=== PATIENT | female | born 1960 | race American Indian/Alaskan Native ===

== ENCOUNTER 2021-03-14 12:32 | Emergency (ER) | payer OTHER ==
[2021-03-14] MEDS ORDERED: Sodium Chloride 0.9% 10 ML Syringe FLUSH PRN (12:59)
[2021-03-14] MEDS ORDERED: Morphine 4 MG/ML Syringe IVPUSH PRN (12:59)
[2021-03-14] MEDS ORDERED: Nitroglycerin 0.4 MG Tab.SL SL PRN (12:59)
[2021-03-14] MEDS ORDERED: Aspirin 81 MG Tab.Chew PO ONE (12:59)
--- NOTE | 2021-03-14 13:03 | EDM.PDOC ---
ED HPI GENERAL MEDICAL PROBLEM - General Chief Complaint: Chest Pain Stated Complaint: HANDS AND LEGS NUMB, CHEST PAIN Time Seen by Provider: 03/14/21 12:56 Source of Information: Reports: Patient, Family, RN Notes Reviewed History Limitations: Reports: No Limitations - History of Present Illness INITIAL COMMENTS - FREE TEXT/NARRATIVE: 60-year-old female presents to the emergency department day complaint of chest pain, states that chest pain started about 4 hours prior she has not had pain like this before does feel nauseated did have one episode of emesis feels diaphoretic and short of breath. She has never had any heart issues but she has a strong family history does use tobacco products - Related Data Allergies Allergy/AdvReac Type Severity Reaction Status Date / Time No Known Allergies Allergy Verified 03/14/21 12:59 Home Meds: Home Meds Budesonide/Formoterol Fumarate [Symbicort 160-4.5 Mcg Inhaler] 6 gm IH BID 03/14/21 [History] LORazepam [Ativan] 0.5 mg PO TID PRN #10 tablet 03/14/21 [Rx] Metoprolol Succinate [Toprol XL] 25 mg PO DAILY 03/14/21 [History] Past Medical History Cardiovascular History: Reports: Hypertension Social & Family History - Tobacco Use Tobacco Use Status *Q: Current Every Day Tobacco User ED ROS GENERAL - Review of Systems Review Of Systems: See Below Constitutional: Reports: Diaphoresis HEENT: Reports: No Symptoms Respiratory: Reports: Shortness of Breath Cardiovascular: Reports: Chest Pain GI/Abdominal: Reports: Nausea, Vomiting ED EXAM, GENERAL - Physical Exam Exam: See Below Exam Limited By: No Limitations General Appearance: Alert, Mild Distress Respiratory/Chest: No Respiratory Distress, Lungs Clear, Normal Breath Sounds, No Accessory Muscle Use, Chest Non-Tender Cardiovascular: Regular Rate, Rhythm, No Murmur GI/Abdominal: Soft, Non-Tender #1 Interpretation EKG Date: 03/14/21 Time: 13:03 Rhythm: NSR Balsam: Normal P-Wave: Present QRS: Normal ST-T: Normal QT: Normal Comparison: NA - No Prior EKG Course - Vital Signs Last Recorded V/S: Last Vital Signs Temp 98 F 03/14/21 12:56 Pulse 59 L 03/14/21 15:19 Resp 14 03/14/21 15:19 BP 137/60 03/14/21 15:19 Pulse Ox 94 L 03/14/21 15:19 - Orders/Labs/Meds Orders: Active Orders 24 hr Category Date Time Status Cardiac Monitoring [RC] .As Directed Care 03/14/21 12:59 Active EKG Documentation Completion [RC] ASDIRECTED Care 03/14/21 13:00 Active Peripheral IV Care [RC] . DIRECTED Care 03/14/21 13:00 Active Morphine Med 03/14/21 12:59 Active 4 mg IVPUSH Q10M PRN Nitroglycerin [Nitrostat] Med 03/14/21 12:59 Active 0.4 mg SL Q5M PRN Sodium Chloride 0.9% [Saline Flush] Med 03/14/21 12:59 Active 10 ml FLUSH ASDIRECTED PRN Peripheral IV Insertion Adult [OM.PC] Stat Oth 03/14/21 12:59 Ordered Saline Lock Insert [OM.PC] Stat Oth 03/14/21 12:59 Ordered EKG 12 Lead [EK] Stat Ther 03/14/21 13:00 Ordered Medication Orders Morphine Sulfate (Morphine 4 Mg/Ml Syringe) 4 mg IVPUSH Q10M PRN PRN Reason: Chest Pain Stop: 03/15/21 12:59 Nitroglycerin (Nitroglycerin 0.4 Mg Tab.Sl) 0.4 mg SL Q5M PRN PRN Reason: Chest Pain Stop: 03/15/21 12:59 Last Admin: 03/14/21 13:17 Dose: 0.4 mg Documented by: ROD Sodium Chloride (Sodium Chloride 0.9% 10 Ml Syringe) 10 ml FLUSH ASDIRECTED PRN PRN Reason: Keep Vein Open Last Admin: 03/14/21 13:27 Dose: 10 ml Documented by: ROD Labs: Laboratory Tests 03/14/21 03/14/21 03/14/21 Range/Units 13:18 13:18 13:18 WBC 7.4 (4.5-11.0) K/uL RBC 4.30 (3.30-5.50) M/uL Hgb 13.4 (12.0-15.0) g/dL Hct 38.8 (36.0-48.0) % MCV 90 (80-98) fL MCH 31 (27-31) pg MCHC 35 (32-36) % Plt Count 216 (150-400) K/uL Neut % (Auto) 64.6 (36-66) % Lymph % (Auto) 29.1 (24-44) % [place] % (Auto) 5.7 (2-6) % Eos % (Auto) 0.5 L (2-4) % Baso % (Auto) 0.1 (0-1) % Sodium 141 (140-148) mmol/L Potassium 3.9 (3.6-5.2) mmol/L Chloride 102 (100-108) mmol/L Carbon Dioxide 24 (21-32) mmol/L Anion Gap 14.9 H (5.0-14.0) mmol/L BUN 14 (7-18) mg/dL Creatinine 0.8 (0.6-1.0) mg/dL Est Cr Clr Drug Dosing TNP Estimated GFR (MDRD) > 60 (>60) Glucose 123 H (74-106) mg/dL Calcium 9.1 (8.5-10.1) mg/dL Total Bilirubin 0.6 (0.2-1.0) mg/dL AST 25 (15-37) U/L ALT 32 (12-78) U/L Alkaline Phosphatase 74 (46-116) U/L Troponin I < 0.017 (0.000-0.056) ng/mL Total Protein 7.4 (6.4-8.2) g/dL Albumin 3.8 (3.4-5.0) g/dL Globulin 3.6 H (2.3-3.5) g/dL Albumin/Globulin Ratio 1.1 L (1.2-2.2) TSH, Ultra Sensitive 1.290 (0.358-3.740) uIU/mL Meds: Medications Generic Name Dose Route Start Last Admin Trade Name Freq PRN Reason Stop Dose Admin Morphine Sulfate 4 mg 03/14/21 12:59 Morphine 4 Mg/Ml Syringe IVPUSH 03/15/21 12:59 Q10M PRN Chest Pain Nitroglycerin 0.4 mg 03/14/21 12:59 03/14/21 13:17 Nitroglycerin 0.4 Mg Tab.Sl SL 03/15/21 12:59 0.4 mg Q5M PRN Administration Chest Pain Sodium Chloride 10 ml 03/14/21 12:59 03/14/21 13:27 Sodium Chloride 0.9% 10 Ml Syringe FLUSH 10 ml ASDIRECTED PRN Administration Keep Vein Open Discontinued Medications Generic Name Dose Route Start Last Admin Trade Name Bimal PRN Reason Stop Dose Admin Aspirin 324 mg 03/14/21 12:59 03/14/21 13:07 Aspirin 81 Mg Tab.Chew PO 03/14/21 13:00 324 mg ONETIME ONE Administration Lorazepam 0.5 mg 03/14/21 14:07 03/14/21 15:05 Lorazepam 2 Mg/Ml Sdv IVPUSH 03/14/21 14:08 0.5 mg ONETIME ONE Administration Departure - Departure Time of Disposition: 15:30 Disposition: Home, Self-Care 01 Condition: Fair Clinical Impression: Anxiety Prescriptions: LORazepam [Ativan] 0.5 mg PO TID PRN #10 tablet PRN Reason: Anxiety Referrals: PCP,None [Primary Care Provider] - Forms: ED Department Discharge Additional Instructions: [facility], use this whenever you have symptoms of chest pain or shortness of breath, please follow-up with your primary care in the next 3 to 5 days for reevaluation consider some long-term anxiety medications call return to the emergency department worsening of symptoms, Sepsis Event Note (ED) - Focused Exam Vital Signs: Vital Signs Temp Pulse Resp BP BP Pulse Ox 03/14/21 15:19 59 L 14 137/60 94 L 03/14/21 14:11 57 L 18 137/68 96 03/14/21 13:41 61 16 150/76 H 94 L 03/14/21 13:25 68 14 152/81 H 93 L 03/14/21 13:17 163/79 H 03/14/21 12:56 98 F 63 22 H 161/77 H 98 - My Orders Last 24 Hours: My Active Orders 03/14/21 12:59 Cardiac Monitoring [RC] .As Directed Morphine 4 mg IVPUSH Q10M PRN Nitroglycerin [Nitrostat] 0.4 mg SL Q5M PRN Sodium Chloride 0.9% [Saline Flush] 10 ml FLUSH ASDIRECTED PRN Peripheral IV Insertion Adult [OM.PC] Stat Saline Lock Insert [OM.PC] Stat 03/14/21 13:00 EKG Documentation Completion [RC] ASDIRECTED Peripheral IV Care [RC] . DIRECTED EKG 12 Lead [EK] Stat - Assessment/Plan Last 24 Hours: My Active Orders 03/14/21 12:59 Cardiac Monitoring [RC] .As Directed Morphine 4 mg IVPUSH Q10M PRN Nitroglycerin [Nitrostat] 0.4 mg SL Q5M PRN Sodium Chloride 0.9% [Saline Flush] 10 ml FLUSH ASDIRECTED PRN Peripheral IV Insertion Adult [OM.PC] Stat Saline Lock Insert [OM.PC] Stat 03/14/21 13:00 EKG Documentation Completion [RC] ASDIRECTED Peripheral IV Care [RC] . DIRECTED EKG 12 Lead [EK] Stat Plan: Assessment Acuity = acute Site and laterality = anxiety Etiology = generalized anxiety disorder Manifestations = chest pain now resolved Location of injury = Home Lab values = CBC, CMP, troponin, thyroid within normal limits EKG is unremar kable , has a poor inspiratory effort it is portable there is a area that could possibly exclude an infiltrate however she has no symptoms of such. Plan Good relief with Ativan provided in the emergency department prescription written for Ativan 0.5 mg 1 tab p.o. 3 times daily as needed total #10 faxed to [facility] she is can follow-up with her primary care in the next 3 to 5 days for reevaluation consider long-term anxiety medication This note was dictated using [employer] voice recognition software please call with any questions on syntax or grammar.
--- NOTE | 2021-03-14 13:55 | CR ---
CHEST: Portable 03/14/2021 at 1:50 PM CLINICAL HISTORY:Chest pain COMPARISON:None FINDINGS: Heart size and pulmonary vascularity are normal. There is some patchy density in the left lower lung field. There are some rib deformities from old fracture of the left lower chest. Impression: Mild patchy density in the left lower lung field and lingular region. Infiltrate is not excluded. 2 view chest with greater inspiration may BE helpful when patient's condition allows
[2021-03-14] MEDS ORDERED: LORazepam 2 MG/ML SDV IVPUSH ONE (14:07)
== END 2021-03-14 16:00 | disposition home or self-care (01) ==
LOC: JP.ED 12:32
DX: F41.9 Anxiety disorder, unspecified (principal); I10 Essential (primary) hypertension; Z72.0 Tobacco use; Z79.899 Other long term (current) drug therapy
CPT/HCPCS: 36415; 71045; 80053; 84443; 84484; 85025; 93005; 96374; 99284; A9270; J2060